=== PATIENT | female | born 1985 | race Caucasian/White ===

== ENCOUNTER 2023-01-20 09:22 | Outpatient (OUT) | payer MEDICAID, SELFPAY ==
[2023-01-20 11:59] LABS: Alanine Aminotransferase 53 U/L (14-59); Albumin Globulin Ratio 0.9; Albumin Level 3.8 g/dL (3.4-5.0); Alkaline Phosphatase 66 U/L (46-116); Anion Gap 8.9; Aspartate Amino Transferase 27 U/L (15-37); BUN Creatinine Ratio 14.3; Bilirubin Total 0.2 mg/dL (0.2-1.0); Calcium 9.2 mg/dL (8.5-10.1); Carbon Dioxide 30.5 mmol/L (21.0-32.0); Chloride 105 mmol/L (98-107); Chol HDL Ratio 6.2; Cholesterol 283 mg/dL (<=200); Estimated GFR (African America >60 (>=60); Estimated GFR (Non-African Ame >60 (>=60); Free T3 2.43 pg/mL (2.18-3.98); Globulin 4.1 g/dL; Glucose 105 mg/dL (74-106); HDL Cholesterol 46 mg/dL (40-60); Potassium 4.4 mmol/L (3.5-5.1); Sodium 140 mmol/L (136-145); Thyroid Stimulating Hormone 2.743 uIU/mL (0.358-3.740); Total Protein 7.9 g/dL (6.4-8.2); Triglycerides 211 mg/dL (<=150); VLDL CHOLESTEROL 42.2 mg/dL
[2023-01-20 12:49] LABS: Estimated Average Glucose 111 mg/dL; Glycohemoglobin A1C 5.5 % (4.5-6.2)
== END 2023-01-20 09:23 | disposition home or self-care (01) ==
LOC: LAB 09:32
PROVIDERS: PCP Nurse Practitioner Family; Visit Provider Nurse Practitioner Family
DX: Z00.01 Encounter for general adult medical examination with abnormal findings (principal); E11.65 Type 2 diabetes mellitus with hyperglycemia
CPT/HCPCS: 36415; 80053; 80061; 83036; 84436; 84443; 84481

== ENCOUNTER 2023-02-06 22:49 | Emergency (ER) | payer MEDICAID, SELFPAY ==
[2023-02-06 22:52] VITALS: BP 186/102; PULSE 95; RESP 18; TEMP 36.8; O2SAT 98; BMI 37.2
[2023-02-06 22:55] VITALS: BP 159/113
[2023-02-06 22:58] VITALS: PULSE 102; RESP 26; O2SAT 97
[2023-02-06 23:00] VITALS: PULSE 123; RESP 17
--- NOTE | 2023-02-06 23:02 | ECG_ITS ---
[facility] Test Date: 2023-02-06 Pat Name: DAMIÁN ERIC Department: Room: - Gender: Female Shade Bander: : 1985 Requested By: [id number] Order Number: [id number] Reading MD: ARGELIA DELUCA Measurements Intervals [place] Rate: 110 P: 33 UT: 132 QRS: 88 QRSD: 80 T: 30 QT: 368 QTc: 433 Interpretive Statements 1120 Sinus tachycardia 9140 abnormal rhythm ECG No previous ECG available for comparison Electronically Signed On 02-08-2023 7:00:49 EDT by ARGELIA DELUCA
[2023-02-06 23:03] LABS: Glucometer 118 mg/dL (74-106)
--- NOTE | 2023-02-06 23:39 | ED.PSYCH1 ---
HPI - Psych General Chief Complaint: Psychiatric Symptoms Stated Complaint: POSS OVERDOSE Time Seen by Provider: 02/06/23 23:18 Mode of arrival: ambulance Limitations: Reports no limitations History of Present Illness HPI Narrative: past history of diabetes and depression. Alec decided to overdose of metformin. States she did this about 2 hours ago. Based upon the day her medication was prescribed and her empty bottle she took > 40 metformin 500mg pills. Does have nausea and vomiting. No other complaint at this time. Does admit to past suicide attempt by overdose but this was years ago. Denies use of alcohol or street drugs Related Data Home Medications Medication Instructions Recorded Confirmed buspirone 10 mg tablet 10 mg PO DAILY 02/07/23 02/07/23 irbesartan 150 mg tablet 150 mg PO DAILY 02/07/23 02/07/23 metformin 500 mg tablet 500 mg PO DAILY 02/07/23 02/07/23 metoprolol tartrate 25 mg tablet 25 mg PO DAILY 02/07/23 02/07/23 simvastatin 20 mg tablet 20 mg PO DAILY 02/07/23 02/07/23 Allergies Allergy/AdvReac Type Severity Reaction Status Date / Time No Known Drug Allergies Allergy Verified 02/06/23 22:55 Review of Systems ROS Status of ROS 10 or more systems reviewed and unremarkable except as noted in history and below Exam Constitutional Vital Signs, click to edit/add: Last Vital Signs Temp 98.3 F 02/06/23 22:52 Pulse 90 02/07/23 06:14 Resp 22 02/07/23 03:10 BP 182/96 H 02/07/23 06:14 Pulse Ox 99 02/07/23 06:14 O2 Del Method Room Air 02/06/23 22:52 Common normals: no apparent distress, oriented x3, no limitations, healthy appearing, alert and well nourished Eye Common normals: EOMs intact bilaterally and conjunctivae normal Respiratory Common normals: normal respiratory effort, no retractions, no use of accessory muscles and clear to auscultation bilaterally Cardio Common normals: regular rate, regular rhythm, S1 normal heart sound and S2 normal heart sound GI Common normals: Normal to inspection, nondistended, normoactive bowel sounds present, soft to palpation and non-tender Extremity Common normals: normal to inspection and full ROM Neuro Common normals: oriented x3, CN's II-XII intact bilaterally, moves all extremities, no focal motor deficits and no sensory deficits noted Psych Appearance: grossly normal Course Vital Signs Vital signs: Vital Signs Temperature 98.3 F 02/06/23 22:52 Pulse Rate 95 H 02/06/23 22:52 Respiratory Rate 18 02/06/23 22:52 Blood Pressure 186/102 H 02/06/23 22:52 Pulse Oximetry 98 02/06/23 22:52 Oxygen Delivery Method Room Air 02/06/23 22:52 Temperature 98.3 F 02/06/23 22:52 Pulse Rate 90 02/07/23 06:14 Respiratory Rate 22 02/07/23 03:10 Blood Pressure 182/96 H 02/07/23 06:14 Pulse Oximetry 99 02/07/23 06:14 Oxygen Delivery Method Room Air 02/06/23 22:52 MDM - Psych MDM Narrative Medical decision making narrative: patient presents after attempted suicide. Took >#40 500mg metformin pills. [place] controlled recommended monitoring 8 hours and to manage acidosis. Patient's BS has remained WNL. Patient hydrated due to elevated lactic acid. Bicarb so far has remained normal. BP elevated . Hydralazine ordered for Hypertension. She normally takes Avapro and metoprolol for Hypertension. Repeat latic acid pending. [place] drug screen positive for marijuana. Care transferred to [facility] ER physician Lab Data Labs: Lab Results 02/06/23 02/06/23 02/06/23 Range/Units 00:27 23:00 23:03 WBC (4.0-11.0) 10^3/uL RBC (4.20-5.40) 10^6/uL Hgb (12.0-16.0) g/dL Hct (36.0-48.0) % MCV (81.0-99.0) fL MCH (26.7-34.0) pg MCHC (29.9-35.2) g/dL RDW (11.0-15.0) % Plt Count (150-450) 10^3/uL MPV (9.5-13.5) fL Neut % (Auto) (43.0-75.0) % Lymph % (Auto) (20.5-60.0) % Harmon % (Auto) (1.7-12.0) % Eos % (Auto) (0.9-7.0) % Baso % (Auto) (0.2-2.0) % Neut # (Auto) (1.4-6.5) 10^3/uL Lymph # (Auto) (1.2-3.8) 10^3/uL Harmon # (Auto) (0.3-0.8) 10^3/uL Eos # (Auto) (0.0-0.7) 10^3/uL Baso # (Auto) (0.0-0.1) 10^3/uL Abs Immat Gran (auto) (0.00-0.03) 10^3/uL Imm/Tot Granulo (auto) (0.0-0.5) % Puncture Site L r ABG pH 7.354 (7.350-7.450) ABG pCO2 39.6 (35.0-45.0) mmHg ABG pO2 99.8 (80.0-100.0) mmHg ABG HCO3 22.0 (22.0-26.0) mmol/L ABG O2 Saturation 97.9 % ABG Base Excess -3.5 L (-2.0-2.0) mmol/L Perez Test Pos (POSITIVE) Sodium (136-145) mmol/L Potassium (3.5-5.1) mmol/L Chloride (98-107) mmol/L Carbon Dioxide (21.0-32.0) mmol/L Anion Gap BUN (7.0-18.0) mg/dL Creatinine (0.55-1.02) mg/dL Est GFR ( Amer) (>=60) Est GFR (Non-Af Amer) (>=60) BUN/Creatinine Ratio Glucose (74-106) mg/dL Lactate 3.4 H* (0.4-2.0) mmol/L Calcium (8.5-10.1) mg/dL Urine HCG, Qual (NEGATIVE) Salicylates <2.8 (<=19.9) mg/dL Urine Opiates Screen (NEGATIVE) Ur Buprenorphine Scrn (NEGATIVE) Ur Oxycodone Screen (NEGATIVE) Urine Methadone Screen (NEGATIVE) Ur Propoxyphene Screen (NEGATIVE) Acetaminophen <2.0 L (10.0-30.0) ug/mL Ur Barbiturates Screen (NEGATIVE) U Tricyclic Antidepress (NEGATIVE) Ur Phencyclidine Scrn (NEGATIVE) Ur Amphetamines Screen (NEGATIVE) U Methamphetamines Scrn (NEGATIVE) U Benzodiazepines Scrn (NEGATIVE) Urine Cocaine Screen (NEGATIVE) U Cannabinoids Screen (NEGATIVE) Ethanol Quant <3 mg/dL POC Glucose 118 H (74-106) mg/dL 02/06/23 02/07/23 02/07/23 Range/Units 23:15 00:03 01:51 WBC (4.0-11.0) 10^3/uL RBC (4.20-5.40) 10^6/uL Hgb (12.0-16.0) g/dL Hct (36.0-48.0) % MCV (81.0-99.0) fL MCH (26.7-34.0) pg MCHC (29.9-35.2) g/dL RDW (11.0-15.0) % Plt Count (150-450) 10^3/uL MPV (9.5-13.5) fL Neut % (Auto) (43.0-75.0) % Lymph % (Auto) (20.5-60.0) % Harmon % (Auto) (1.7-12.0) % Eos % (Auto) (0.9-7.0) % Baso % (Auto) (0.2-2.0) % Neut # (Auto) (1.4-6.5) 10^3/uL Lymph # (Auto) (1.2-3.8) 10^3/uL Harmon # (Auto) (0.3-0.8) 10^3/uL Eos # (Auto) (0.0-0.7) 10^3/uL Baso # (Auto) (0.0-0.1) 10^3/uL Abs Immat Gran (auto) (0.00-0.03) 10^3/uL Imm/Tot Granulo (auto) (0.0-0.5) % Puncture Site ABG pH (7.350-7.450) ABG pCO2 (35.0-45.0) mmHg ABG pO2 (80.0-100.0) mmHg ABG HCO3 (22.0-26.0) mmol/L ABG O2 Saturation % ABG Base Excess (-2.0-2.0) mmol/L Perez Test (POSITIVE) Sodium (136-145) mmol/L Potassium (3.5-5.1) mmol/L Chloride (98-107) mmol/L Carbon Dioxide (21.0-32.0) mmol/L Anion Gap BUN (7.0-18.0) mg/dL Creatinine (0.55-1.02) mg/dL Est GFR ( Amer) (>=60) Est GFR (Non-Af Amer) (>=60) BUN/Creatinine Ratio Glucose (74-106) mg/dL Lactate (0.4-2.0) mmol/L Calcium (8.5-10.1) mg/dL Urine HCG, Qual Negative (NEGATIVE) Salicylates (<=19.9) mg/dL Urine Opiates Screen Negative (NEGATIVE) Ur Buprenorphine Scrn Negative (NEGATIVE) Ur Oxycodone Screen Negative (NEGATIVE) Urine Methadone Screen Negative (NEGATIVE) Ur Propoxyphene Screen Negative (NEGATIVE) Acetaminophen (10.0-30.0) ug/mL Ur Barbiturates Screen Negative (NEGATIVE) U Tricyclic Antidepress Negative (NEGATIVE) Ur Phencyclidine Scrn Negative (NEGATIVE) Ur Amphetamines Screen Negative (NEGATIVE) U Methamphetamines Scrn Negative (NEGATIVE) U Benzodiazepines Scrn Negative (NEGATIVE) Urine Cocaine Screen Negative (NEGATIVE) U Cannabinoids Screen Positive A (NEGATIVE) Ethanol Quant mg/dL POC Glucose 114 H 129 H (74-106) mg/dL 02/07/23 02/07/23 02/07/23 Range/Units 02:10 03:59 05:08 WBC 11.0 (4.0-11.0) 10^3/uL RBC 3.87 L (4.20-5.40) 10^6/uL Hgb 11.6 L (12.0-16.0) g/dL Hct 36.6 (36.0-48.0) % MCV 94.6 (81.0-99.0) fL MCH 30.0 (26.7-34.0) pg MCHC 31.7 (29.9-35.2) g/dL RDW 12.9 (11.0-15.0) % Plt Count 248 (150-450) 10^3/uL MPV 9.1 L (9.5-13.5) fL Neut % (Auto) 76.5 H (43.0-75.0) % Lymph % (Auto) 18.6 L (20.5-60.0) % Harmon % (Auto) 3.9 (1.7-12.0) % Eos % (Auto) 0.3 L (0.9-7.0) % Baso % (Auto) 0.3 (0.2-2.0) % Neut # (Auto) 8.4 H (1.4-6.5) 10^3/uL Lymph # (Auto) 2.0 (1.2-3.8) 10^3/uL Harmon # (Auto) 0.4 (0.3-0.8) 10^3/uL Eos # (Auto) 0.0 (0.0-0.7) 10^3/uL Baso # (Auto) 0.0 (0.0-0.1) 10^3/uL Abs Immat Gran (auto) 0.04 H (0.00-0.03) 10^3/uL Imm/Tot Granulo (auto) 0.4 (0.0-0.5) % Puncture Site ABG pH (7.350-7.450) ABG pCO2 (35.0-45.0) mmHg ABG pO2 (80.0-100.0) mmHg ABG HCO3 (22.0-26.0) mmol/L ABG O2 Saturation % ABG Base Excess (-2.0-2.0) mmol/L Perez Test (POSITIVE) Sodium 140 (136-145) mmol/L Potassium 4.6 (3.5-5.1) mmol/L Chloride 106 (98-107) mmol/L Carbon Dioxide 21.2 (21.0-32.0) mmol/L Anion Gap 17.4 BUN 20.0 H (7.0-18.0) mg/dL Creatinine 1.30 H (0.55-1.02) mg/dL Est GFR ( Amer) 55 L (>=60) Est GFR (Non-Af Amer) 45 L (>=60) BUN/Creatinine Ratio 15.4 Glucose 138 H (74-106) mg/dL Lactate 3.6 H* 3.0 H* (0.4-2.0) mmol/L Calcium 8.6 (8.5-10.1) mg/dL Urine HCG, Qual (NEGATIVE) Salicylates (<=19.9) mg/dL Urine Opiates Screen (NEGATIVE) Ur Buprenorphine Scrn (NEGATIVE) Ur Oxycodone Screen (NEGATIVE) Urine Methadone Screen (NEGATIVE) Ur Propoxyphene Screen (NEGATIVE) Acetaminophen (10.0-30.0) ug/mL Ur Barbiturates Screen (NEGATIVE) U Tricyclic Antidepress (NEGATIVE) Ur Phencyclidine Scrn (NEGATIVE) Ur Amphetamines Screen (NEGATIVE) U Methamphetamines Scrn (NEGATIVE) U Benzodiazepines Scrn (NEGATIVE) Urine Cocaine Screen (NEGATIVE) U Cannabinoids Screen (NEGATIVE) Ethanol Quant mg/dL POC Glucose 121 H (74-106) mg/dL Discharge Plan Discharge Chief Complaint: Psychiatric Symptoms Clinical Impression: Suicide attempt by drug overdose, Depression Patient Disposition: Still a Patient Prescriptions / Home Meds: No Action buspirone 10 mg tablet 10 mg PO DAILY irbesartan 150 mg tablet 150 mg PO DAILY metformin 500 mg tablet 500 mg PO DAILY metoprolol tartrate 25 mg tablet 25 mg PO DAILY simvastatin 20 mg tablet 20 mg PO DAILY Referrals: HUY KATZ [Primary Care Provider] - 1 week
--- NOTE | 2023-02-06 23:45 | PC.NURSE ---
pt brought in by ems because patient was found by her son with metformin pill bottle on floor next to patient. ems called and when they arrived pt admits to taking the rest of the pills in the metformin bottle around 10pm. when viewing patient pharmacy history, pt filled her metformin on 01/22/2023, pt takes 500mg once a day which would mean patient took around 45 pills. on arrival to ED pt has nausea and is vomiting. pt states she also feels tired at this time. pt changed into a gown and belongings removed from room and with security. constant observer at bedside.
[2023-02-07] VITALS (16 sets, daily range): BP systolic 142–182; BP diastolic 90–119; PULSE 77–90; RESP 22; O2SAT 96–99
[2023-02-07 00:03] LABS: Amphetamine Screen Urine NEGATIVE (NEGATIVE); Barbiturates Screen Urine NEGATIVE (NEGATIVE); Benzodiazepines Screen Urine NEGATIVE (NEGATIVE); Buprenorphine Screen Urine NEGATIVE (NEGATIVE); Cannabinoid Screen Urine POSITIVE (NEGATIVE); Cocaine Screen Urine NEGATIVE (NEGATIVE); Methadone Screen Urine NEGATIVE (NEGATIVE); Methamphetamines Screen Urine NEGATIVE (NEGATIVE); Opiate Screen Urine NEGATIVE (NEGATIVE); Oxycodone Screen Urine NEGATIVE (NEGATIVE); Phencyclidine Screen Urine NEGATIVE (NEGATIVE); Tricyclic Antidepressant Urine NEGATIVE (NEGATIVE)
[2023-02-07 00:05] LABS: Glucometer 114 mg/dL (74-106)
[2023-02-07] MEDS: 0.9 % SODIUM CHLORIDE 1,000 ML 999 ML IV ×3 (00:06→03:11)
[2023-02-07 00:12] LABS: Lactate/Lactic Acid 3.4 mmol/L (0.4-2.0)
[2023-02-07 00:21] LABS: HCG Qualitative Urine* NEGATIVE (NEGATIVE)
[2023-02-07 00:22] LABS: Acetaminophen <2.0 ug/mL (10.0-30.0); Salicylate <2.8 mg/dL (<=19.9)
[2023-02-07 00:23] LABS: Ethanol <3 mg/dL
[2023-02-07 00:42] LABS: ABG PCO2 39.6 mmHg (35.0-45.0); Allen Test POS (POSITIVE); Base Excess ABG -3.5 mmol/L (-2.0-2.0); O2 Mode RA; Oxygen Saturation ABG 97.9 %; PO2 ABG 99.8 mmHg (80.0-100.0); pH ABG 7.354 (7.350-7.450)
[2023-02-07 00:43] LABS: Puncture Site L R
[2023-02-07 02:04] LABS: Glucometer 129 mg/dL (74-106)
[2023-02-07 02:26] LABS: Anion Gap 17.4; BUN Creatinine Ratio 15.4; Calcium 8.6 mg/dL (8.5-10.1); Carbon Dioxide 21.2 mmol/L (21.0-32.0); Chloride 106 mmol/L (98-107); Estimated GFR (African America 55 (>=60); Estimated GFR (Non-African Ame 45 (>=60); Glucose 138 mg/dL (74-106); Potassium 4.6 mmol/L (3.5-5.1); Sodium 140 mmol/L (136-145)
[2023-02-07 02:36] LABS: Lactate/Lactic Acid 3.6 mmol/L (0.4-2.0)
[2023-02-07 04:00] LABS: Glucometer 121 mg/dL (74-106)
[2023-02-07 05:12] LABS: Basophils Percent Auto 0.3 % (0.2-2.0); Eosinophils Percent Auto 0.3 % (0.9-7.0); Hematocrit 36.6 % (36.0-48.0); Hemoglobin 11.6 g/dL (12.0-16.0); Immature Granulocytes Abs Auto 0.04 10^3/uL (0.00-0.03); Immature Granulocytes Pct Auto 0.4 % (0.0-0.5); Lymphocytes Percent Auto 18.6 % (20.5-60.0); Mean Corpuscular HGB Conc 31.7 g/dL (29.9-35.2); Mean Corpuscular Volume 94.6 fL (81.0-99.0); Mean Platelet Volume 9.1 fL (9.5-13.5); Monocytes Absolute Auto 0.4 10^3/uL (0.3-0.8); Monocytes Percent Auto 3.9 % (1.7-12.0); Neutrophils Absolute Auto 8.4 10^3/uL (1.4-6.5); Neutrophils Percent Auto 76.5 % (43.0-75.0); Platelet Count 248 10^3/uL (150-450); Red Blood Count 3.87 10^6/uL (4.20-5.40); Red Cell Distribution Width 12.9 % (11.0-15.0)
[2023-02-07 06:44] LABS: Glucometer 116 mg/dL (74-106)
[2023-02-07] MEDS: HYDRALAZINE HCL 20 MG/ML VIAL 5 MG IVP (06:45)
[2023-02-07 06:59] LABS: Anion Gap 17.4; BUN Creatinine Ratio 15.7; Calcium 8.2 mg/dL (8.5-10.1); Carbon Dioxide 21.2 mmol/L (21.0-32.0); Chloride 105 mmol/L (98-107); Estimated GFR (African America 56 (>=60); Estimated GFR (Non-African Ame 47 (>=60); Glucose 113 mg/dL (74-106); Potassium 4.6 mmol/L (3.5-5.1); Sodium 139 mmol/L (136-145)
[2023-02-07] MEDS: ONDANSETRON PF 4 MG/2 ML VIAL IV (07:51)
[2023-02-07] MEDS: 0.9 % SODIUM CHLORIDE 1,000 ML 125 ML IV (07:51)
[2023-02-07 07:58] LABS: Glucometer 104 mg/dL (74-106)
[2023-02-07 08:03] LABS: PCO2 VBG 25.4 mmHg (40.0-52.0); pH VBG 7.467 (7.330-7.430)
[2023-02-07 08:22] LABS: Lactate/Lactic Acid 2.5 mmol/L (0.4-2.0)
[2023-02-07 08:34] LABS: Glucometer 117 mg/dL (74-106)
== END 2023-02-07 11:10 ==
PROVIDERS: Emergency Medicine; Emergency Provider Internal Medicine; PCP Nurse Practitioner Family
DX: T38.3X2A Poisoning by insulin and oral hypoglycemic [antidiabetic] drugs, intentional self-harm, initial encounter (principal); F32.A Depression, unspecified; E11.9 Type 2 diabetes mellitus without complications; R11.2 Nausea with vomiting, unspecified; Z79.899 Other long term (current) drug therapy; Z79.84 Long term (current) use of oral hypoglycemic drugs
CPT/HCPCS: 36415; 36416; 36600; 80048; 80179; 80307; 80320; 80329; 82800; 82805; 83605; 84703; 85025; 93005; 96361; 96374; 96375; 99285

== ENCOUNTER 2023-03-20 10:25 | Emergency (ER) | payer BC, MEDICAID, SELFPAY ==
[2023-03-20 10:25] VITALS: BP 178/100
[2023-03-20 10:29] VITALS: PULSE 78; RESP 18; TEMP 36.4; O2SAT 97; BMI 35.4
--- NOTE | 2023-03-20 10:38 | ED.DENTAL1 ---
HPI - Dental/Oral General Chief complaint: Dental/Oral Stated complaint: MOUTH PAIN Time Seen by Provider: 03/20/23 10:30 Source: patient Mode of arrival: walk-in Limitations: no limitations History of Present Illness HPI Narrative: 38-year-old female presents for pain and swelling to her left lower jaw. She has a toothache. She has a dentist that she can contact tomorrow and this started yesterday. The pain is moderate and continuous. No difficulty breathing or swallowing. Related Data Home Medications Medication Instructions Recorded Confirmed buspirone 10 mg tablet 10 mg PO BID 02/07/23 02/07/23 irbesartan 150 mg tablet 150 mg PO DAILY 02/07/23 02/07/23 metformin 500 mg tablet 500 mg PO BIDWM 02/07/23 02/07/23 metoprolol tartrate 25 mg tablet 25 mg PO BID 02/07/23 02/07/23 simvastatin 20 mg tablet 20 mg PO QPM 02/07/23 02/07/23 Previous Rx's Medication Instructions Recorded ibuprofen 800 mg tablet 800 mg PO Q8H PRN pain #20 tabs 03/20/23 penicillin V potassium 250 mg 250 mg PO QID 10 days #40 tabs 03/20/23 tablet Allergies Allergy/AdvReac Type Severity Reaction Status Date / Time No Known Drug Allergies Allergy Verified 03/20/23 10:32 Review of Systems ROS Narrative A ten point review of systems is negative except as noted above. PFSH PFSH Social History Smoking status: Current every day smoker Exam Narrative Exam Narrative: Nurses note and vital signs reviewed and patient is not hypoxic. General: The patient appears well and in no apparent distress. Patient is resting comfortably on cart. Skin: Warm, dry, no pallor noted. There is no rash noted. Head: Normocephalic, atraumatic Eye: Normal conjunctiva, no drainage Ears, Nose, Mouth, and Throat: oral mucosa is moist. Nares patent. mild swelling to the left lower jaw. No erythema. No swelling to the floor of her mouth. She is handling her oral secretions well. Dental condition is poor with many teeth missing. Remaining teeth have significant dental caries. Cardiovascular: Regular Rate and Rhythm Respiratory: Patient is in no distress, no accessory muscle use, lungs are clear to auscultation, no wheezing, rales or rhonchi Back: non-tender GI: soft and nontender Musculoskeletal: The patient has no evidence of calf tenderness, no pitting edema, symmetrical pulses noted bilaterally Neurological: A&O, normal speech Psychiatric: Cooperative Constitutional Vital Signs, click to edit/add: Last Vital Signs Temp 97.5 F L 03/20/23 10:29 Pulse 78 03/20/23 10:29 Resp 18 03/20/23 10:29 Pulse Ox 97 03/20/23 10:29 O2 Del Method Room Air 03/20/23 10:29 Course Vital Signs Vital signs: Vital Signs Temperature 97.5 F L 03/20/23 10:29 Pulse Rate 78 03/20/23 10:29 Respiratory Rate 18 03/20/23 10:29 Pulse Oximetry 97 03/20/23 10:29 Oxygen Delivery Method Room Air 03/20/23 10:29 Temperature 97.5 F L 03/20/23 10:29 Pulse Rate 78 03/20/23 10:29 Respiratory Rate 18 03/20/23 10:29 Pulse Oximetry 97 03/20/23 10:29 Oxygen Delivery Method Room Air 03/20/23 10:29 MDM - Dental/Oral MDM Narrative Medical decision making narrative: she'll call her dentist tomorrow and was started on penicillin here and was prescribed penicillin. Treatment diagnosis and follow-up were discussed with the patient. Differential Diagnosis Differential diagnosis: Likely gingival abscess, dental caries, toothache and dental abscess Discharge Plan Discharge Chief Complaint: Dental/Oral Clinical Impression: Dental caries Patient Disposition: Home, Self-Care Time of Disposition Decision: 10:36 Condition: Good Mode of Transportation: Private Vehicle Prescriptions / Home Meds: New penicillin V potassium 250 mg tablet 250 mg PO QID 10 Days Qty: 40 0RF ibuprofen 800 mg tablet 800 mg PO Q8H PRN (Reason: pain) Qty: 20 0RF No Action buspirone 10 mg tablet 10 mg PO BID irbesartan 150 mg tablet 150 mg PO DAILY metformin 500 mg tablet 500 mg PO BIDWM metoprolol tartrate 25 mg tablet 25 mg PO BID simvastatin 20 mg tablet 20 mg PO QPM Instructions: Toothache (ED), Tooth Extraction (DC) Stand Alone Forms: Portal Instructions Referrals: HUY KATZ [Primary Care Provider] - 1 week
[2023-03-20] MEDS: PENICILLIN V POTASSIUM 250 MG TABLET 500 MG PO (10:42)
[2023-03-20 10:47] VITALS: BP 150/96; PULSE 78; RESP 18; O2SAT 98
== END 2023-03-20 10:49 | disposition home or self-care (01) ==
PROVIDERS: Emergency Provider Emergency Medicine; PCP Nurse Practitioner Family
DX: K02.9 Dental caries, unspecified (principal); F17.210 Nicotine dependence, cigarettes, uncomplicated
CPT/HCPCS: 99283